=== PATIENT | male | born 1950 | race Caucasian/White ===

== ENCOUNTER 2017-04-16 12:27 | Emergency (ER) | payer MEDICAID, MEDICARE ==
[~2017-04-16] VITALS: Ht 182.9 cm; Wt 60.0 kg
[2017-04-16] MEDS ORDERED: IBUPROFEN 200 MG TABLET PO ONE (13:00)
[2017-04-16] MEDS ORDERED: OXYcodone/APAP 5/325MG TABLET PO ONE (13:00)
[2017-04-16] MEDS ORDERED: LORazepam 1MG TABLET PO ONE (13:00)
[2017-04-16 13:21] LABS: ASPARTATE AMINO TRANSFERASE 16 U/L (15-37); BLOOD UREA NITROGEN 12 mg/dL (7-18)
[2017-04-16 13:24] LABS: ACETAMINOPHEN < 2 mcg/mL (10-30)
[2017-04-16] MEDS ORDERED: OXYcodone/APAP 5/325MG TABLET ONE (14:08)
[2017-04-16] MEDS ORDERED: LORazepam 1MG TABLET ONE (14:08)
[2017-04-16] MEDS ORDERED: IBUPROFEN 200 MG TABLET ONE (14:09)
[2017-04-16 15:10] VITALS: BP 102/74
== END 2017-04-16 16:47 | disposition home or self-care (01) ==
LOC: ED 13:45
DX: F31.9 Bipolar disorder, unspecified (principal); R45.851 Suicidal ideations; F12.90 Cannabis use, unspecified, uncomplicated
CPT/HCPCS: 36415; 80053; 80307; 80329; 85025; 99284; G0480

== ENCOUNTER 2018-12-08 14:13 | Emergency (ER) | payer MEDICARE, MEDICAID ==
[~2018-12-08] VITALS: Ht 182.9 cm; Wt 66.7 kg
[2018-12-08 14:28] VITALS: BP 120/80
[2018-12-08] MEDS ORDERED: OXYcodone/APAP 5/325MG TABLET ONE (15:21)
[2018-12-08] MEDS ORDERED: OXYcodone/APAP 5/325MG TABLET PO ONE (15:30)
[2018-12-08] MEDS ORDERED: LIDOCAINE 2% VISCOUS 15 ML UDC ONE (15:31)
[2018-12-08] MEDS ORDERED: LIDOCAINE 2% VISCOUS 15 ML UDC MM ONE (16:00)
== END 2018-12-08 15:44 | disposition home or self-care (01) ==
LOC: ED 15:38
DX: K02.9 Dental caries, unspecified (principal); F31.9 Bipolar disorder, unspecified; F41.1 Generalized anxiety disorder
CPT/HCPCS: 99283